=== PATIENT | female | born 1995 | race Caucasian/White ===

== ENCOUNTER 2017-09-05 06:33 | Emergency (ER) | payer OTHER ==
[~2017-09-05] VITALS: Ht 160 cm; Wt 76.8 kg
[~2017-09-05 06:33] MED LIST: METOCLOPRAMIDE H5 MG; Motrin PO; NEURO-K50 MG; NO HOME MEDICATIONS; NOHOMEMEDS; PRENATAL VITAM1 EAC1 PO; ZANTAC PO; birth control pill
[2017-09-05 07:09] LABS: HEMATOCRIT 35.8 % (36.0-46.0); HEMOGLOBIN 11.9 G/DL (11.9-15.5); MCH 27.7 PG (29.0-34.0); MCHC 33.2 G/DL (30.0-36.0); MCV 83.3 FL (83-99); PLATELET COUNT 392 K/uL (156-360); RBC DIS.WIDTH-CV 12.6 % (11.8-14.6); RBC DIS.WIDTH-SD 38.2 % (39-53); WHITE BLOOD COUNT 12.3 K/uL (4.1-10.2)
[2017-09-05 07:33] LABS: CHLORIDE 105 MEQ/L (99-109); POTASSIUM 3.4 MEQ/L (3.7-5.4); SODIUM 140 MEQ/L (136-147)
[2017-09-05 07:39] LABS: CREATININE 0.6 MG/DL (0.6-1.3); GFR ESTIMATE (CALCULATED) > 59 mL/min/; GLUCOSE 75 mg/dL (70-99); UREA NITROGEN (BUN) 11 mg/dL (9-23)
[2017-09-05 08:01] VITALS: BP 127/77
== END 2017-09-05 08:02 | disposition home or self-care (01) ==
LOC: EME 06:33
PROVIDERS: Emergency Medicine
DX: J40 Bronchitis, not specified as acute or chronic (principal); Z88.0 Allergy status to penicillin
CPT/HCPCS: 71046; 80048; 85027; 85379; 99281; 99283